=== PATIENT | male | born 1985 | race Caucasian/White ===

== ENCOUNTER 2022-06-26 17:07 | Emergency (ER) | payer BC ==
[~2022-06-26] VITALS: Ht 167.6 cm; Wt 90.7 kg
[2022-06-26 17:20] VITALS: BP 141/75
[2022-06-26] MEDS ORDERED: NACL 0.9% 1,000 ML IV ONE (18:05)
[2022-06-26] MEDS ORDERED: MORPHINE SULFATE 4 MG/ML SYR IVP ONE (18:05)
[2022-06-26] MEDS ORDERED: ONDANSETRON 4 MG/2 ML VIAL IVP ONE (18:05)
--- NOTE | 2022-06-26 18:37 | NUR ---
36/M HARSHA FROM [facility] [employer]. EMS STATES PATEINT WAS SWIMMING IN THE POOL WHEN A PIECE OF THE TILE CEILING FELL ONTO HIM. PATIENT STATES HE FELT A SUDDEN 10/10 "SHOOTING" PAIN. PATIENT REPORTS HE ATTEMPTED TO GET OUT OF THE POOL WAS IN TOO MUCH PAIN. PATIENT DENIES HEAD OR NECK INJURY, MAINTENANCE TECHNICIAN TO TOUCH. [employer]'S INTACT, DENIES NUMBNESS OR TINGLING, PATIENT ABLE TO MOVE ALL EXTREMITIES.
--- NOTE | 2022-06-26 19:22 | NUR ---
Pt report given to ANJU Carbone Transfer of care at this time.
[2022-06-26] MEDS ORDERED: IBUP-2213 PO (19:37)
[2022-06-26] MEDS ORDERED: LID5T TP (19:37)
[2022-06-26] MEDS ORDERED: ACET-9527 PO (19:37)
--- NOTE | 2022-06-26 20:00 | NUR ---
IV removed, catheter intact and site benign. Applied folded 4x4 gauze and tape to stop bleeding.
--- NOTE | 2022-06-26 20:01 | NUR ---
PATIETN CALLING FAMILY MEMBER TO BRING CLOTHES AND CLEANER SIGNS
[2022-06-26 20:04] VITALS: BP 128/70
--- NOTE | 2022-06-26 20:04 | NUR ---
Patient discharged with v/s stable. Written and verbal after care instructions given and explained. Patient alert, oriented and verbalized understanding of instructions. Ambulatory with steady gait. All questions addressed prior to discharge. ID band removed. Patient advised to follow up with PMD. Rx of HYDROCODONE/ACETAMINOPHEN, IBUPROFEN, AND LIDOCAINE given. Patient educated on indication of medication including possible reaction and side effects. Opportunity to ask questions provided and answered.
[2022-06-27] MEDS ORDERED: ONDA-188 PO (17:58)
[2022-06-27] MEDS ORDERED: IBUP-2213 PO (18:45)
[2022-06-27] MEDS ORDERED: LID5T TP (18:45)
[2022-06-27] MEDS ORDERED: ACET-9527 PO (18:45)
== END 2022-06-26 20:04 | disposition home or self-care (01) ==
LOC: MED 17:07
DX: S30.0XXA Contusion of lower back and pelvis, initial encounter (principal); S09.90XA Unspecified injury of head, initial encounter; W18.30XA Fall on same level, unspecified, initial encounter; Y93.89 Activity, other specified; Y92.89 Other specified places as the place of occurrence of the external cause; Y99.8 Other external cause status
CPT/HCPCS: 70450; 72072; 72100; 96361; 96374; 96375; 99284; J2270; J2405; J7030

== ENCOUNTER 2022-06-27 17:22 | Emergency (ER) | payer BC ==
[~2022-06-27] VITALS: Ht 170.2 cm; Wt 97.5 kg
[~2022-06-27 17:22] MED LIST: ACET-9527 PO; IBUP-2213 PO; LID5T TP
[2022-06-27 17:28] VITALS: BP 141/80
[2022-06-27] MEDS ORDERED: ONDA-188 PO (17:58)
[2022-06-27] MEDS ORDERED: ACET-9527 PO (18:45)
[2022-06-27] MEDS ORDERED: IBUP-2213 PO (18:45)
[2022-06-27] MEDS ORDERED: LID5T TP (18:45)
== END 2022-06-27 18:18 | disposition home or self-care (01) ==
LOC: MED 17:22
DX: S09.90XA Unspecified injury of head, initial encounter (principal); X58.XXXA Exposure to other specified factors, initial encounter; Y93.89 Activity, other specified; Y92.89 Other specified places as the place of occurrence of the external cause; Y99.8 Other external cause status
CPT/HCPCS: 99283